=== PATIENT | female | born 1990 | race Caucasian/White ===

== ENCOUNTER 2017-12-31 14:51 | Emergency (ER) | payer OTHER ==
[~2017-12-31] VITALS: Ht 165.1 cm; Wt 66.2 kg
[~2017-12-31 14:51] MED LIST: AUGMENTIN 875-1 EACH PO; IBUPROFEN800 M1 PO; NORCO 5-325 TA1 EACH PO
--- NOTE | 2017-12-31 16:29 | ED GENERAL ADULT ---
History of Present Illness General Chief Complaint: General Adult Stated Complaint: VAGINAL ABCESS Source: patient, old records Exam Limitations: no limitations Vital Signs & Intake/Output Vital Signs & Intake/Output Vital Signs Date Time Temp Pulse Resp B/P B/P Pulse O2 O2 Flow FiO2 Mean Ox Delivery Rate 12/31 1513 97.0 88 18 122/82 98 Room Air Allergies Coded Allergies: aspirin (Intermediate, SWELLING 03/31/17) Reconcile Medications Amoxicillin/Potassium Clav (Augmentin 875-125 Tablet) 875 MG-125 MG TABLET 1 TAB PO BID BARTHOLIN CYST Amoxicillin/Potassium Clav (Augmentin 875-125 Tablet) 875 MG-125 MG TABLET 1 TAB PO BID DENTAL INFECTION Hydrocodone/Acetaminophen ([place] 5-325 Tablet) 5 MG-325 MG TABLET 1-2 TAB PO Q4-6 PRN PRN PAIN Ibuprofen 800 MG TABLET 1 TAB PO TID PRN PAIN Triage Note: 27F WHO IS 9 WEEKS WITH TWINS NOTICED VAGINAL DISCHARGE THAT IS DARK YELLOW/RED WITH SLIGHT MALODOR. NOW HAS A LUMP THE SIZE OF A NICKEL ON INNER LABIA AND VERY PAINFUL. ALSO ENDORSES ABD CRAMPING THAT BEGAN A FEW DAYS AGO BUT IS WORSENING. REPORTS HYPEREMESIS, TAKING DICLEGIS WITHOUT RELIEF. HAS NOT YET SEEN AN OBGYN AND STATES SHE IS HIGH RISK DUE TO TWO PREVIOUS ABORTIONS Triage Nurses Notes Reviewed? yes : Yes Patient currently breastfeeds: No HPI: 27F (1 , 2xAb), 9 weeks with twins, sent in from urgent care with lower back pain, intermittent abdominal cramping, and a painful lump on her vagina. She has been placed on bedrest with hyperemesis during this but does not have established obstetric care thus far. She has noticed infrequent spotting with a small amount of red discharge, though this only occurs after extensive activity. She only complains of vaginal pain at this time. She has not noticed any other discharge. No trauma. Denies fever, chills, vomiting, diarrhea, chest pain, SOB. Past History Travel History Traveled to [place] past 21 day No Medical History Any Pertinent Medical History? see below for history Neurological: NONE EENT: NONE Cardiovascular: NONE Respiratory: NONE Gastrointestinal: NONE Hepatic: NONE Renal: NONE Musculoskeletal: NONE Psychiatric: NONE Endocrine: NONE Blood Disorders: NONE Surgical History Surgical History: none Psychosocial History What is your primary language Albanian Tobacco Use: Never used Family History Hx Contributory? No Review of Systems Review of Systems Constitutional: Reports: no symptoms. EENTM: Reports: no symptoms. Respiratory: Reports: no symptoms. Cardiovascular: Reports: no symptoms. GI: Reports: no symptoms. Genitourinary: Reports: no symptoms. Musculoskeletal: Reports: no symptoms. Skin: Reports: no symptoms. Neurological/Psychological: Reports: no symptoms. Hematologic/Endocrine: Reports: no symptoms. Immunologic/Allergic: Reports: no symptoms. All Other Systems: Reviewed and Negative Physical Exam Physical Exam General Appearance: well developed/nourished, no apparent distress Head: atraumatic, normal appearance Eyes: Bilateral: normal appearance. Ears, Nose, Throat: normal ENT inspection, hearing grossly normal Neck: normal inspection, full range of motion Respiratory: normal breath sounds, no respiratory distress Cardiovascular: regular rate/rhythm Gastrointestinal: soft, non-tender Back: normal inspection, normal range of motion Extremities: normal inspection, normal range of motion Neurologic/Psych: awake, alert, oriented x 3, normal mood/affect Skin: intact, normal color, warm/dry Comments: Vaginal exam shows small left sided bartholin cyst that does not appear infected , no purulence, no discharge, mild erythema, exam otherwise normal Core Measures ACS in differential dx? No CVA/TIA Diagnosis: No Sepsis Present: No Sepsis Focused Exam Completed? No Progress Differential Diagnoses I considered the following diagnoses in my evaluation of the patient: , miscarriage, trauma, endometritis, demise, barthloin cyst, abscess, cellulitis, cyst rputure, appendicitis Plan of Care: Orders Procedure Date/time Status RHOGAM WORK-UP 12/31 1510 Complete HUMAN BETA HCG TITRE 12/31 1509 Complete Laboratory Tests 12/31/17 1519: Beta HCG, Quant [id number] Diagnostic Imaging: Viewed by Me: Ultrasound. Discussed w/RAD: Ultrasound. Radiology Impression: PATIENT: MICHELLE BRIGGS PRESENT AGE: 27 PATIENT ACCOUNT NO: [id number] : 89 LOCATION: [facility] ORDERING PHYSICIAN: Omari Ga MD SERVICE DATE: 12/31/17-1512 EXAM TYPE: US - US- VIABILITY EXAMINATION: US , VIABILITY CLINICAL INFORMATION: Pelvic cramping. Light bleeding. . Currently on bed rest. Approximately 9 weeks . COMPARISON: None TECHNIQUE: Transabdominal imaging performed. FINDINGS: The LMP is 10/25/2017 corresponding to an expected gestational age of 9 weeks 4 days. Estimated due date is 08/01/2018. 2 intrauterine gestational sacs are visualized. The lower gestational sac is identified in fact a. This contains a pole with a crown rump length of 2.54 cm corresponding to 9 weeks and 3 days. The upper gestational sac contains a pole with a crown-rump length of 2.60 cm corresponding to a gestational age of 9 weeks 3 days. heart rate of fetus A is 174 bpm. motion is observed. A yolk sac is identified. Small amount of subchorionic free fluid is identified adjacent to the gestational sac. The heart rate of fetus B is 174 beats per minutes. motion is observed. A yolk sac is identified. The left ovary measures 2.7 x 1.8 x 2.7 cm is morphologically unremarkable. The right ovary measures 2.0 x 3.5 x 3.0 cm and contains a hypoechoic cystic structure measuring up to 2.8 cm. IMPRESSION: Viable dichorionic twin . Size equals dates. DICTATED BY: Renee Galvez MD DATE/TIME DICTATED:12/31/171622 CATH LAB RADIOLOGY TECHNICIAN:CHANTE DATE/TIME TRANSCRIBED:12/31/171622 CONFIDENTIAL, DO NOT COPY WITHOUT APPROPRIATE AUTHORIZATION. <Electronically signed in Other Vendor System> SIGNED BY: Renee Galvez MD 12/31/17 1633 Initial ED EKG: none Departure Departure Disposition: HOME OR SELF CARE Condition: Stable Clinical Impression Primary Impression: Bartholin cyst Referrals: Zainab Serrano MD Unknown (PCP/Family) Additional Instructions: Follow up with your manager channel or the one referrred. You can use warm compresses for the cyst. Take the antibiotics as prescribed. If you notice any further or worsening pain, bleeding, discharge, or any other new or worsening symptoms, return to ER. Departure Forms: Customer Survey General Discharge Information Prescriptions: Current Visit Scripts Amoxicillin/Potassium Clav (Augmentin 875-125 Tablet) 1 TAB PO BID #14 TAB Critical Care Note Critical Care Note Critical Care Time: non-applicable
--- NOTE | 2017-12-31 16:33 | ULTRASOUND REPORT ---
EXAMINATION: US , VIABILITY CLINICAL INFORMATION: Pelvic cramping. Light bleeding. . Currently on bed rest. Approximately 9 weeks . COMPARISON: None TECHNIQUE: Transabdominal imaging performed. FINDINGS: The LMP is 10/25/2017 corresponding to an expected gestational age of 9 weeks 4 days. Estimated due date is 08/01/2018. 2 intrauterine gestational sacs are visualized. The lower gestational sac is identified in fact a. This contains a pole with a crown rump length of 2.54 cm corresponding to 9 weeks and 3 days. The upper gestational sac contains a pole with a crown-rump length of 2.60 cm corresponding to a gestational age of 9 weeks 3 days. heart rate of fetus A is 174 bpm. motion is observed. A yolk sac is identified. Small amount of subchorionic free fluid is identified adjacent to the gestational sac. The heart rate of fetus B is 174 beats per minutes. motion is observed. A yolk sac is identified. The left ovary measures 2.7 x 1.8 x 2.7 cm is morphologically unremarkable. The right ovary measures 2.0 x 3.5 x 3.0 cm and contains a hypoechoic cystic structure measuring up to 2.8 cm. IMPRESSION: Viable dichorionic twin . Size equals dates.
[2017-12-31] MEDS ORDERED: AUGMENTIN 875-1 EACH PO (16:52)
[2017-12-31 16:55] VITALS: BP 126/88
[2018-01-05] MEDS ORDERED: NORCO 5-325 TA1 EACH PO (02:07)
== END 2017-12-31 16:56 ==
LOC: ERH 14:51
DX: O26.91 Pregnancy related conditions, unspecified, first trimester (principal); N75.0 Cyst of Bartholin's gland; Z3A.09 9 weeks gestation of pregnancy